=== PATIENT | male | born 2000 | race Caucasian/White ===

== ENCOUNTER 2020-05-21 09:48 | Emergency (ER) | payer BC ==
[~2020-05-21] VITALS: Ht 172.7 cm; Wt 72.7 kg
[2020-05-21 09:52] VITALS: BP 109/67
[2020-05-21] MEDS ORDERED: BENZ-38 PO (10:25)
[2020-05-21] MEDS ORDERED: ALBU6.7H9 INH (10:25)
[2020-05-21] MEDS ORDERED: PRED20TA PO (10:25)
[2020-05-21] MEDS ORDERED: FAMO20TA8 PO (20:59)
[2020-05-21] MEDS ORDERED: MAG355OR18 PO (20:59)
== END 2020-05-21 10:45 | disposition home or self-care (01) ==
LOC: ER 09:49
DX: R50.9 Fever, unspecified (principal); R05 Cough; R61 Generalized hyperhidrosis; Z20.828 Contact with and (suspected) exposure to other viral communicable diseases; F17.200 Nicotine dependence, unspecified, uncomplicated; Z79.899 Other long term (current) drug therapy
CPT/HCPCS: 71045; 99283

== ENCOUNTER 2020-05-21 18:23 | Emergency (ER) | payer BC ==
[~2020-05-21] VITALS: Ht 172.7 cm; Wt 72.7 kg
[~2020-05-21 18:23] MED LIST: ALBU6.7H9 INH; BENZ-38 PO; PRED20TA PO
[2020-05-21] MEDS ORDERED: ibuprofen tablet 400 MG TABLET PO STA (18:57)
[2020-05-21] MEDS ORDERED: LIDOcaine Viscous 15ml cup MM STA (19:18)
[2020-05-21] MEDS ORDERED: famotidine 20mg tablet PO ONE (19:20)
[2020-05-21] MEDS ORDERED: mag hydrox/Alum hydrox/simeth 30ml oral suspension PO ONE (19:20)
[2020-05-21] MEDS ORDERED: normal saline 1000ML IV soln IVB ONE (19:40)
[2020-05-21 20:23] LABS: BASOPHILS % (AUTO) 0.2 % (0-1); EOSINOPHILS % (AUTO) 0.2 % (0-6); HEMATOCRIT 44.1 % (42.0-52.0); HEMOGLOBIN 15.2 g/dl (14.0-17.9); LYMPHOCYTES # (AUTO) 0.4 X10'3 (1.1-4.8); LYMPHOCYTES % (AUTO) 5.1 % (21-51); MEAN CORPUSCULAR HEMOGLOBIN 30.4 PG (27.0-31.0); MEAN CORPUSCULAR HGB CONC 34.5 g/dL (33.0-36.5); MEAN CORPUSCULAR VOLUME 88.1 FL (78-98); MEAN PLATELET VOLUME 8.1 FL (7.4-10.4); MONOCYTES # (AUTO) 0.9 X10'3 (0-0.9); MONOCYTES % (AUTO) 10.2 % (2-12); NEUTROPHILS # (AUTO) 7.2 X10'3 (1.8-7.7); NEUTROPHILS % (AUTO) 84.3 % (42-75); PLATELET COUNT 190 X10'3 (140-440); RED CELL DISTRIBUTION WIDTH 12.5 % (11.5-14.5); WHITE BLOOD COUNT 8.5 X10'3 (4.5-11.0)
[2020-05-21 20:33] LABS: D-DIMER 0.45 MG/L FEU (0-0.50)
[2020-05-21 20:37] LABS: ALANINE AMINOTRANSFERASE 14 U/L (12-78); ALBUMIN 4.1 G/DL (3.4-5.0); ALBUMIN/GLOBULIN RATIO 1.1 (1.1-1.5); ALKALINE PHOSPHATASE 48 IU/L (20-180); ANION GAP 8 (8-16); ASPARTATE AMINO TRANSFERASE 16 U/L (10-37); BILIRUBIN,TOTAL 0.4 MG/DL (0.1-1.0); BLOOD UREA NITROGEN 9 MG/DL (7-18); BUN/CREATININE RATIO 7.6 (5.4-32.0); CALCIUM 8.7 MG/DL (8.5-10.1); CHLORIDE 98 MMOL/L (99-107); CREATININE 1.19 MG/DL (0.60-1.10); GLUCOSE 107 MG/DL (70-104); POTASSIUM 3.7 MMOL/L (3.5-5.1); SODIUM 133 MMOL/L (135-145); TOTAL CARBON DIOXIDE 26.8 MMOL/L (24-32); TOTAL PROTEIN 7.9 G/DL (6.4-8.2); eGFR 79 ML/MIN
[2020-05-21] MEDS ORDERED: FAMO20TA8 PO (20:59)
[2020-05-21] MEDS ORDERED: MAG355OR18 PO (20:59)
[2020-05-21 21:26] VITALS: BP 127/70
== END 2020-05-21 21:28 | disposition home or self-care (01) ==
LOC: ER 18:23
DX: R50.9 Fever, unspecified (principal); Z72.0 Tobacco use; Z79.899 Other long term (current) drug therapy
CPT/HCPCS: 36415; 80053; 84484; 85025; 85379; 93005; 99284; J7030

== ENCOUNTER 2025-04-21 12:05 | Emergency (ER) | payer BC ==
[~2025-04-21] VITALS: Ht 172.7 cm; Wt 70.5 kg
[~2025-04-21 12:05] MED LIST changes: +ALBU6.7H14 INH; -ALBU6.7H9 INH; -BENZ-38 PO; +FAMO20TA8 PO; -PRED20TA PO
[2025-04-21] MEDS: triamcinolone acetonide 40mg/ml inj IM ONE (12:59)
--- NOTE | 2025-04-21 13:29 | Physician Documentation ---
History of Present Illness ~ Chief Complaint: Rash Stated Complaint: POISON OAK Time Seen by MD: 12:41 Primary Medical Doctor: NONE HPI PT presents with a rash for last week., States he works outside. has ongoing itchiness Day of Onset: Apr 21, 2025 Medication Reconciliation Allergies: Coded Allergies: poison oak extract (Verified Allergy, Unknown, 04/21/25) Scheduled Albuterol Sulfate (Proventil Hfa), 2 PUFFS INH Q6H Famotidine (Famotidine), 1 TAB PO Q12H Past Medical History Past Medical History: No Pertinent History Past Surgical History: no surgical history Alcohol Use: None Drug Use: none Physical Exam Vital Signs: Temperature: 97.0, Source: Oral, Heart Rate: 71, Respiratory Rate: 18, BP: 135/72, Pulse Oximetry: 98, Weight: 70.500 Physical Exam General: Alert, no apparent distress. Psychiatric: Normal mood and affect. Skin: Normal color, warm and dry. No edema, no ecchymosis. itchy rash on arms Progress Results/Orders Results/Orders Completed Orders - BAO ALBA NP Triamcinolone Acet 40mg/Ml Inj (Kenalog- (04/21/25 12:50) Medications Received in ER Medications (Trade) Dose Ordered Sig/Giselle Route PRN Reason Start Time Stop Time Status Last Admin Dose Admin (Kenalog-40 inj) 40 mg ONCE ONCE IM 04/21/25 12:50 04/21/25 12:51 DC 04/21/25 12:59 40 MG Vital Signs 04/21/25 04/21/25 12:15 13:44 Temp 97.0 97.0 Pulse 71 65 Resp 18 16 B/P (MAP) 135/72 110/64 Pulse Ox 98 99 Medical Decision Making Findings Patient presents with a all the clinical indications for poison oak gave him corticosteroid shot and advised him to stay out of the sun avoid further exposu re Differential Dx:Considerations: Include: Abscess, AIDS/HIV, Anthrax (cutaneous), Atopic dermatitis, Candidiasis, Contact dermatitis, Drug reaction, Erythema multiforme, Erysipelas, Gangrene, Herpes zoster, Herpes simplex, Hidradenitis suppurativa, Impetigo, Intertrigo, Lymes disease, Molluscum contagiosum, Osteomyelitis, Pediculosis, Pityriasis rosea, Psoriaisis, RMSF, Rosacea, Scabies, Scarlet fever, Tinea, Urticaria, Varicella, Viral exanthema, Other Departure Disposition: 01 HOME / SELF CARE / HOMELESS Impression: Primary Impression: Poison oak Condition: Stable Discharge Instructions: Pruritus Referrals: NO PRIMARY CARE PROVIDER (PCP) Signature Scribe Signature: f Attestation: Scribed for Bao Alba [employer] Banking Manager by Bao Jones NP . 04/21/25 18:24 BAO ALBA NP Apr 21, 2025 13:29
[2025-04-21 13:44] VITALS: BP 110/64; PULSE 65; RESP 16; TEMP 97; O2SAT 99
== END 2025-04-21 13:40 | disposition home or self-care (01) ==
LOC: ER 12:06
DX: L23.7 Allergic contact dermatitis due to plants, except food (principal)
CPT/HCPCS: 96372; 99283; J3301